=== PATIENT | female | born 1980 | race American Indian/Alaskan Native ===

== ENCOUNTER 2021-12-12 08:14 | Emergency (ER) | payer MEDICAID ==
[2021-12-12] MEDS ORDERED: amLODIPine 5 MG TAB PO ONE (14:50)
[2021-12-12] MEDS ORDERED: hydroCHLOROthiazide 25 MG TAB PO ONE (14:50)
--- NOTE | 2021-12-12 15:10 | XRay Report ---
CHEST 1 VIEW 12/12/2021 2:03 PM INDICATION / CLINICAL INFORMATION: CHEST PAIN, SOB. COMPARISON: None available. FINDINGS: SUPPORT DEVICES: None. HEART / MEDIASTINUM: No significant abnormality. LUNGS / PLEURA: No significant pulmonary or pleural abnormality. No pneumothorax. ADDITIONAL FINDINGS: No significant additional findings. IMPRESSION: 1. No acute findings. Signer Name: Isidoro Wilcox MD Signed: 12/12/2021 3:06 PM Workstation Name: [employer]
--- NOTE | 2021-12-12 15:24 | Emergency Department Report ---
- General Chief complaint: Weakness Stated complaint: GENERAL WEAKNESS Source: patient, EMS Mode of arrival: Stretcher Limitations: No Limitations - History of Present Illness Initial comments: 41-year-old female with a history of hypertension medication noncompliant presents to the emergency department with weakness and chest pain. Patient reports that for the past 2 weeks she has been feeling very tired like she is going to pass out, fatigue easily even with ADLs States her blood pressure is high, unsure what the number is but she has not been taking her hydrochlorothiazide which was previously prescribed. Describes pain in her left chest, which is nonradiating, associated with nausea, without palpitations, headache, dizziness or vision changes, no swelling of the extremities. She reports nausea without abdominal pain, also feels like "she might have a urine tract infection because she has been having some increase discharge from her vagina which is different from her usual bloody discharge". No incontinence, she denies being sexually active, no flank pain, no back pain, no hematuria, no dysuria. Is any drug use history of PE/DVT recent travel, [place] lives [place]-way. MD Complaint: lack of energy -: Gradual Associated Symptoms: chest pain, shortness of breath. denies: confusion, fever/chills, headaches - Related Data Previous Rx's Medication Instructions Recorded Last Taken Type amLODIPine 5 mg PO DAILY #90 tab 12/12/21 Unknown Rx hydroCHLOROthiazide [Hctz] 12.5 mg PO QDAY #90 capsule 12/12/21 Unknown Rx Allergies Allergy/AdvReac Type Severity Reaction Status Date / Time lisinopril Allergy Unknown Verified 12/12/21 08:19 ED Review of Systems ROS: Stated complaint: GENERAL WEAKNESS Other details as noted in HPI Constitutional: no symptoms reported Eyes: as per HPI ENT: as per HPI Respiratory: shortness of breath. denies: cough, orthopnea Cardiovascular: chest pain. denies: palpitations, dyspnea on exertion Gastrointestinal: nausea. denies: abdominal pain, vomiting Genitourinary: discharge. denies: urgency, abnormal menses Musculoskeletal: as per HPI. denies: joint swelling Skin: as per HPI Neurological: weakness. denies: numbness, paresthesias, confusion ED Past Medical Hx - Medications Home Medications: Home Medications Medication Instructions Recorded Confirmed Last Taken Type amLODIPine 5 mg PO DAILY #90 tab 12/12/21 Unknown Rx hydroCHLOROthiazide [Hctz] 12.5 mg PO QDAY #90 capsule 12/12/21 Unknown Rx ED Physical Exam - General Limitations: No Limitations General appearance: alert, in no apparent distress - Head Head exam: Present: atraumatic - Eye Eye exam: Present: normal appearance, PERRL Pupils: Present: normal accommodation - ENT ENT exam: Present: normal exam, normal orophraynx - Neck Neck exam: Present: normal inspection - Respiratory Respiratory exam: Present: normal lung sounds bilaterally. Absent: respiratory distress - Cardiovascular Cardiovascular Exam: Present: regular rate, normal rhythm - GI/Abdominal GI/Abdominal exam: Present: soft. Absent: tenderness - Extremities Exam Extremities exam: Present: normal inspection, full ROM - Back Exam Back exam: Present: normal inspection - Neurological Exam Neurological exam: Present: alert, oriented X3, CN II-XII intact, normal gait, reflexes normal. Absent: abnormal gait, motor sensory deficit - Psychiatric Psychiatric exam: Present: normal affect, normal mood. Absent: depressed, homicidal ideation, suicidal ideation - Skin Skin exam: Present: warm, dry, intact, normal color. Absent: cyanosis, diaphoretic, erythema, urticaria ED Course Vital Signs 12/12/21 12/12/21 12/12/21 08:15 15:51 15:55 Temperature 98.2 F 98.6 F Pulse Rate 93 H 55 L 55 L Respiratory 20 18 Rate Blood Pressure 180/104 Blood Pressure 160/121 168/120 [Left] O2 Sat by Pulse 100 99 Oximetry 12/12/21 17:31 Temperature Pulse Rate 72 Respiratory 18 Rate Blood Pressure Blood Pressure 160/111 [Left] O2 Sat by Pulse 98 Oximetry ED Medical Decision Making - Lab Data Result diagrams: 12/12/21 15:29 - EKG Data EKG shows normal: sinus rhythm Rate: normal - EKG Data When compared to previous EKG there are: no significant change, previous EKG unavailable Interpretation: LVH - Medical Decision Making 41-year-old female with a history of hypertension medication noncompliant presents to the emergency department with weakness and chest pain. Patient reports that for the past 2 weeks she has been feeling very tired like she is going to pass out, fatigue easily even with ADLs States her blood pressure is high, unsure what the number is but she has not been taking her hydrochlorothiazide which was previously prescribed. Describes pain in her left chest, which is nonradiating, associated with nausea, without palpitations, headache, dizziness or vision changes, no swelling of the extremities. She reports nausea without abdominal pain, also feels like "she might have a urine tract infection because she has been having some increase discharge from her vagina which is different from her usual bloody discharge". No incontinence, she denies being sexually active, no flank pain, no back pain, no hematuria, no dysuria. Is any drug use history of PE/DVT recent travel, patient lives half-way Labs are reassuring, EKG is nonischemic, troponin is also negative, blood pressure has been addressed with medications, which I have prescribed water pill and amlodipine hydrochlorothiazide, with a cardiology referral. Patient has remained stable throughout ED course, eating drinking and ambulating steadily. No vomiting. Discharged home with understanding as well as return precautions. Voice device used to dictate patient's note which might contain errors and wrong wording/verbiage. Critical care attestation.: If time is entered above; I have spent that time in minutes in the direct care of this critically ill patient, excluding procedure time. ED Disposition Clinical Impression: Uncontrolled hypertension, Chest pain Disposition: 01 HOME / SELF CARE / HOMELESS Is pt being admited?: No Does the pt Need Aspirin: No Condition: Stable Instructions: Nonspecific Chest Pain, Adult, Hypertension, Adult, Clta-vl-Toyd, Hypertension (ED) Prescriptions: amLODIPine 5 mg PO DAILY #90 tab hydroCHLOROthiazide [Hctz] 12.5 mg PO QDAY #90 capsule Referrals: PRIMARY CAREMD [Primary Care Provider] - 3-5 Days ROQUE POLLARD MD [Staff Physician] - 3-5 Days
[2021-12-12 16:04] LABS: Blood Urea Nitrogen 15 mg/dL (7-17); Calcium 9.7 mg/dL (8.4-10.2); Hemolysis Index 10
[2021-12-12 16:05] LABS: BUN/Creatinine Ratio 21
[2021-12-12 17:32] VITALS: BP 160/111
[2021-12-12 17:46] LABS: Bilirubin,Urine Negative (Negative); Blood,Urine Trace (Negative); Color,Urine Yellow (Yellow); Mucus,Urine 3+ /HPF; Urobilinogen,Urine < 2.0 mg/dL (<2.0)
--- NOTE | 2021-12-14 10:34 | Electrocardiograph Report ---
[facility] Test Date: 2021-12-12 Test Time: 17:08:56 Pat Name: ARLET RETANA Department: Room: Gender: F Infant Toddler Lead Teacher: [birth year] : 1980 Requested By: ISSAC SCHUSTER Order Number: [id number] Reading MD: Tucker Baker Measurements Intervals [place] Rate: 78 P: 15 NE: 153 QRS: 57 QRSD: 85 T: 61 QT: 377 QTc: 430 Interpretive Statements Sinus rhythm Consider left ventricular hypertrophy No previous ECG available for comparison Electronically Signed On 12-14-2021 10:33:50 EDT by Tucker Baker
== END 2021-12-12 18:07 | disposition home or self-care (01) ==
LOC: ED 08:14
DX: R07.9 Chest pain, unspecified (principal); I10 Essential (primary) hypertension; Z91.09 Other allergy status, other than to drugs and biological substances
CPT/HCPCS: 36415; 71045; 80048; 81001; 84484; 93005; 99284